=== PATIENT | male | born 1985 | race Hispanic/Latino ===

== ENCOUNTER 2018-10-14 04:48 | Emergency (ER) | payer SELFPAY ==
[2018-10-14] MEDS ORDERED: ONDANSETRON HCL 4 MG/2 ML VIAL ONE (05:12)
[2018-10-14] MEDS ORDERED: MORPHINE SULFATE 4 MG/1ML SYG ONE (05:12)
[2018-10-14 05:18] LABS: EOSINOPHILS % (AUTO) 0.2 % (0.0-8.0); HEMATOCRIT 44.1 % (42-54); LYMPHOCYTES % (AUTO) 14.1 % (21.0-51.0); MEAN CORPUSCULAR HEMOGLOBIN 29.6 pg (27.0-33.0); MEAN CORPUSCULAR HGB CONC 33.6 g/dL (32.0-36.0); MONOCYTES % (AUTO) 6.1 % (3.0-13.0); NEUTROPHILS % (AUTO) 78.6 % (40.0-77.0); PLATELET COUNT (AUTO) 264 K/uL (130-400); RED BLOOD CELL COUNT(AUTO) 5.01 MIL/uL (4.50-6.20); RED CELL DISTRIBUTION WIDTH 13.3 % (11.0-15.5); WHITE BLOOD COUNT (AUTO) 16.4 K/uL (4.8-10.8)
[2018-10-14 05:57] LABS: ALBUMIN 3.5 g/dL (3.5-5.0); BILIRUBIN,TOTAL 0.6 mg/dL (0.2-1.0); CREATININE 1.2 mg/dL (0.5-1.5); POTASSIUM 4.2 mmol/L (3.5-5.1); TOTAL PROTEIN, SERUM 8.2 g/dL (6.0-8.3)
[2018-10-14] MEDS ORDERED: IOHEXOL-350 75 ML VIAL IV ONE (06:05)
[2018-10-14] MEDS ORDERED: METRONIDAZOLE 500MG/100ML BAG 100 ML ONE (06:27)
[2018-10-14] MEDS ORDERED: KETOROLAC TROMETHAMINE 30MG/ML ONE (06:55)
[2018-10-14] MEDS ORDERED: LEVOFLOXACIN 750 MG/D5W 150 ML 150 ML ONE (06:55)
== END 2018-10-14 09:10 | disposition home or self-care (01) ==
LOC: EDH 04:48
DX: K57.92 Diverticulitis of intestine, part unspecified, without perforation or abscess without bleeding (principal); Z72.0 Tobacco use
CPT/HCPCS: 36415; 74177; 80053; 83690; 85025; 96365; 96367; 96375; 99284; J1885; J1956; J2270; J2405; J3490; Q9967